=== PATIENT | male | born 1950 | race Caucasian/White ===

== ENCOUNTER → 2017-01-23 | Outpatient (CLI) | payer MEDICARE, BC ==
[2017-01-23 11:48] LABS: PROTHROMBIN TIME 14.3 SEC (11.4-15.4)
[2017-01-23 11:49] LABS: PARTIAL THROMBOPLASTIN TIME 29.1 SEC (23.5-35.8)
== END ==
LOC: OD 10:40
PROVIDERS: ATTEND Physician Assistant
DX: Z79.02 Long term (current) use of antithrombotics/antiplatelets (principal); Z79.01 Long term (current) use of anticoagulants
CPT/HCPCS: 36415; 85610; 85730

== ENCOUNTER → 2017-06-15 | Outpatient (CLI) | payer MEDICARE, BC | LOC: OD 13:01 | PROVIDERS: ATTEND Urology | DX: N40.1 Benign prostatic hyperplasia with lower urinary tract symptoms (principal); Z53.8 Procedure and treatment not carried out for other reasons ==

== ENCOUNTER → 2017-06-30 | Outpatient (CLI) | payer MEDICARE, BC ==
--- NOTE | 2017-06-30 21:19 | RADIOLOGY REPORT (SQ) ---
EXAM DESCRIPTION: MRI RT UPPER JOINT WITHOUT COMPLETED DATE/TIME: 06/30/2017 7:16 pm REASON FOR STUDY: PAIN IN RIGHT SHOULDER M25.511 PAIN IN RIGHT SHOULDER COMPARISON: None. TECHNIQUE: Right shoulder images acquired and stored on PACS. Multiplanar imaging to include fat sen sitive sequences such as T1, water sensitive sequences such as FST2/STIR, cartilage sensitive sequenc es such as FSPD/gradient-echo sequences. LIMITATIONS: None. FINDINGS: BONE MARROW AND CORTEX: No marrow signal abnormalities worrisome for occult fracture or ag gressive marrow replacement process. Subcentimeter subcortical cyst right humeral head medial to the bicipital groove axial image 9. subcentimeter subcortical cyst posterior right humeral head greater tuberosity. JOINT OR BURSAL EFFUSION: No significant joint or bursal fluid. No suggestion of loose bodies. GLENO-HUMERAL ARTICULATION: Normal articulation. No subluxation. No cystic change. No osteophytes or cartilage loss. ACROMION AND AC JOINT: Type 4 acromion with bulky acromioclavicular joint bony spurring and mild narr owing of the subacromial recess best shown on coronal image 7 and sagittal image 13. ROTATOR CUFF AND INTERVAL: There is a small tear along the superior edge of the distal subscapularis tendon best shown on sagittal image 11. Supraspinatus and infraspinatus undersurface tendinopathy wi thout full-thickness tear. No rotator interval tear. No rotator interval thickening to suggest adhesive capsulitis. LABRUM AND BICEPS LABRAL COMPLEX: Intra-articular long head biceps tendon normal in signal. There is a small superior labral tear at its attachment, extending into the posterosuperior labrum best art wn on axial images 7-11. No paralabral cyst. REMAINDER OF LABRUM AND IGHL : No gross tear or paralabral cyst formation. Labral evaluation is less than optimal without joint distention. No thickening of IGHL to suggest adhesive capsulitis. PERIARTICULAR AND ADJACENT SOFT TISSUES: No masses or abnormal nodes. OTHER: No other significant finding. IMPRESSION: Small full-thickness tear superior margin of the distal subscapularis tendon The long head biceps tendon insertion superior labral tear extending into the posterosuperior labrum Mild distal supra and infraspinatus tendinopathy. TECHNICAL DOCUMENTATION: JOB ID: [id number]- All Rights Reserved
== END ==
LOC: RAD 18:24
PROVIDERS: ATTEND Physician Assistant
DX: M25.511 Pain in right shoulder (principal)

== ENCOUNTER 2017-09-21 10:22 | Day surgery (SDC) | payer MEDICARE, BC ==
--- NOTE | 2017-09-18 09:58 | RADIOLOGY REPORT (SQ) ---
EXAM DESCRIPTION: CHEST PA/LATERAL COMPLETED DATE/TIME: 09/18/2017 9:28 am REASON FOR STUDY: PRE OP COMPARISON: None. EXAM PARAMETERS: NUMBER OF VIEWS: two views TECHNIQUE: Digital Frontal and Lateral radiographic views of the chest acquired. RADIATION DOSE: NA LIMITATIONS: none FINDINGS: LUNGS AND PLEURA: No opacities, masses or pneumothorax. No pleural effusion. MEDIASTINUM AND HILAR STRUCTURES: No masses or contour abnormalities. HEART AND VASCULAR STRUCTURES: Heart normal size. No evidence for failure. BONES: No acute findings. HARDWARE: None in the chest. OTHER: No other significant finding. IMPRESSION: NO SIGNIFICANT RADIOGRAPHIC FINDING IN THE CHEST. TECHNICAL DOCUMENTATION: JOB ID: [id number] [employer]- All Rights Reserved
[2017-09-18 10:04] LABS: ABSOLUTE BASOPHILS # (AUTO) 0.1 10^3/uL (0.0-0.2); ABSOLUTE EOSINOPHILS # (AUTO) 0.2 10^3/uL (0.0-0.6); ABSOLUTE LYMPHOCYTES (AUTO) 1.9 10^3/uL (0.5-4.7); ABSOLUTE MONOCYTES (AUTO) 0.5 10^3/uL (0.1-1.4); ABSOLUTE NEUT (AUTO) 5.4 10^3/uL (1.7-8.2); BASOPHILS % (AUTO) 0.8 % (0-2); EOSINOPHILS % (AUTO) 2.1 % (0-6); HEMOGLOBIN 15.2 g/dL (13.5-17.0); LYMPHOCYTES % (AUTO) 23.8 % (13-45); MEAN CORPUSCULAR HEMOGLOBIN 29.8 pg (27.0-33.4); MEAN CORPUSCULAR HGB CONC 33.8 g/dL (32.0-36.0); MEAN CORPUSCULAR VOLUME 88 fl (80-97); MONOCYTES % (AUTO) 6.5 % (3-13); PLATELET COUNT 214 10^3/uL (150-450); RED CELL DISTRIBUTION WIDTH 13.4 % (11.5-14.0); SEGMENTED NEUTROPHILS % (AUTO) 66.8 % (42-78); TOTAL CELLS COUNTED % (AUTO) 100 %
[2017-09-18 10:10] LABS: APPEARANCE,URINE SLIGHTLY-CLOUDY; BILIRUBIN,URINE NEGATIVE (NEGATIVE); COLOR,URINE AMBER; GLUCOSE, URINE NEGATIVE (NEGATIVE); KETONES,URINE NEGATIVE (NEGATIVE); LEUKOCYTE ESTERASE,URINE NEGATIVE (NEGATIVE); NITRITE,URINE NEGATIVE (NEGATIVE); PROTEIN,URINE NEGATIVE (NEGATIVE); URINE SPECIFIC GRAVITY 1.024
[2017-09-18 10:28] LABS: ANION GAP 13 (5-19); BLOOD UREA NITROGEN 13 mg/dL (7-20); CALCIUM 9.2 mg/dL (8.4-10.2); CARBON DIOXIDE 25 mmol/L (22-30); CHLORIDE 103 mmol/L (98-107); GLUCOSE 125 mg/dL (75-110); POTASSIUM 4.1 mmol/L (3.6-5.0); SODIUM 141.4 mmol/L (137-145)
--- NOTE | 2017-09-18 13:38 | EKG REPORT ---
SEVERITY:- ABNORMAL ECG - ATRIAL FIBRILLATION CONSIDER POSTERIOR INFARCT MINIMAL ST DEPRESSION, ANTEROLATERAL LEADS : Confirmed by: Tobi Moss MD 18-Sep-2017 13:38:14
[~2017-09-21 10:22] MED LIST: CEFAZOLIN 2 GM/D5W RTU 2 GM/50 ML RTUPB IV PRN; LACTATED RINGERS 1000 ML IV PRN; LIDOCAINE 0.5% INJ-PF (5 MG/ML) 50 ML SDV SUBCUT PRN
[2017-09-21 12:27] LABS: PROTHROMBIN TIME 13.9 SEC (11.4-15.4)
[2017-09-21 12:28] LABS: PARTIAL THROMBOPLASTIN TIME 28.7 SEC (23.5-35.8)
[2017-09-21] MEDS ORDERED: PROPOFOL INJ 200 MG/20 ML VIAL IV ONE (12:58)
[2017-09-21] MEDS ORDERED: ACETAMINOPHEN 100 ML IV ONE (12:58)
[2017-09-21] MEDS ORDERED: ONDANSETRON HCL INJ/PF 4 MG/2 ML SDV ONE (12:58)
[2017-09-21] MEDS ORDERED: MIDAZOLAM 2 MG/2 ML INJ ONE (12:58)
[2017-09-21] MEDS ORDERED: FENTANYL CITRATE INJ/PF 250 MCG/5 ML AMPULE ONE (12:58)
[2017-09-21] MEDS ORDERED: LIDOCAINE 2% INJ-PF (20 MG/ML) 10 ML AMPUL ONE (12:58)
[2017-09-21] MEDS ORDERED: BUPIVACAINE HCL 0.25 % INJ/PF (2.5 MG/1 ML) 30 ML VIAL ONE (13:04)
[2017-09-21] MEDS ORDERED: EPINEPHRINE INJ/PF 1 MG/1 ML AMPULE ONE ×2 (13:04→14:34)
[2017-09-21] MEDS ORDERED: FENTANYL CITRATE INJ/PF 100 MCG/2 ML AMPUL IV PRN ×3 (14:04)
[2017-09-21] MEDS ORDERED: MEPERIDINE HCL/PF INJ 25 MG/1 ML DISP.SYRIN IV PRN (14:04)
[2017-09-21] MEDS ORDERED: PROMETHAZINE HCL INJ 25 MG/1 ML VIAL IV PRN ×2 (14:04)
[2017-09-21] MEDS ORDERED: DIPHENHYDRAMINE HCL 50 MG/ML VIAL IV PRN (14:04)
[2017-09-21] MEDS ORDERED: MORPHINE SULFATE 10 MG/ML INJ IV PRN (14:04)
[2017-09-21] MEDS ORDERED: ONDANSETRON HCL INJ/PF 4 MG/2 ML SDV IV PRN (14:04)
[2017-09-21] MEDS ORDERED: SUCCINYLCHOLINE CHLORIDE INJ 200 MG/10 ML VIAL ONE (14:06)
[2017-09-21] MEDS: FENTANYL CITRATE INJ/PF 100 MCG/2 ML AMPUL ONE ×2 (15:57→16:09)
[2017-09-21] MEDS ORDERED: OXYCODONE-ACETAMINOPHEN 5-325 MG TABLET PO PRN ×2 (16:45)
--- NOTE | 2017-09-21 16:46 | Discharge Summary ---
Discharge Summary (SDC) - Discharge Final Diagnosis: Right shoulder and ambulation with arthroscopic rotator cuff repair and biceps tenodesis Date of Surgery: 09/21/17 Discharge Date: 09/21/17 Condition: Good Treatment or Instructions: Patient is instructed to follow up in 10-14 days. Patient instructed to remove dressing in 4 days then can shower and apply Band- Aids as needed. Patient to wear sling for comfort but okay to remove for shower and pendulum exercises. Pendulum exercises are instructed to be done 3 times a day ideally with breakfast, lunch, dinners and showers. Patient instructed to call if there is any signs of redness or drainage fevers or chills. Prescriptions: Oxycodone HCl/Acetaminophen [Percocet 5-325 mg Tablet] 1 - 2 tab PO ASDIR PRN # 60 tablet PRN Reason: Referrals: DUC TAYLOR PA [Primary Care Provider] - Discharge Diet: As Tolerated Respiratory Treatments at Home: Deep Breathing/Coughing Discharge Activity: No Driving, No Lifting/Push/Pulling, Walk Frequently Home Care Assistance: None Needed Report the Following to Your Physician Immediately: Shortness of Breath, Increase in Pain, Fever over 101 Degrees, Unusual Bleeding, Redness, Swelling, Warmth, Increased Soreness, Drainage-Yellow, Drainage-[place], Drainage-Green, Drainage-Foul Smelling
[2017-09-21] MEDS ORDERED: OXYCODONE-ACETAMINOPHEN 5-325 MG TABLET ONE (16:49)
[2017-09-21 18:12] VITALS: BP 127/78
--- NOTE | 2017-09-28 16:33 | Operative Report ---
Operative Report DATE OF SURGERY: 09/21/17 PREOPERATIVE DIAGNOSIS: Right shoulder small full-thickness rotator cuff tear with biceps tendinopathy and adhesive capsulitis POSTOPERATIVE DIAGNOSIS: Same OPERATION: Right shoulder manipulation under anesthesia. Rotator cuff repair. Subpectoralis biceps tenodesis SURGEON: MARIA DEL ROSARIO LU ANESTHESIA: GA TISSUE REMOVED OR ALTERED: Long head of the biceps COMPLICATIONS: None ESTIMATED BLOOD LOSS: Less than 20 mL INTRAOPERATIVE FINDINGS: As above PROCEDURE: IMPLANTS: 4.75 mm swivel lock 2 DESCRIPTION OF PROCEDURE: Patient was brought to the operating room placed in supine position. After successfully induced and intubated the patient patient was placed in the beachchair position the head and endotracheal tube was secured appropriately. The right shoulder was prepped and draped in a normal surgical fashion. A timeout was done identifying the right shoulder as the correct site. I proceeded to do a manipulation and felt that release and was able to regain full for flexion and abduction with external rotation as well. After inflating the glenohumeral joint with sterile saline solution an 11 blade was used to establish the posterior portal. The arthroscope was introduced and return of fluid was seen showing that we successfully penetrated the glenohumeral joint. With the use of spinal needle we're able to lissette the anterior portal and using an 11 blade able to establish anterior portal. A cannula was introduced through the anterior portal. At this point diagnostic scope was done. Patient had adhesive capsulitis therefore he saw significant synovitis and redness at the attachment of the biceps and the capsule anteriorly. There is some fraying of the superior labrum and I was able to place my probe in between the labrum and the glenoid. Confirm that the patient had a degenerative SLAP tear. I used arthroscopic scissors then to do my tenotomy and then with the shaver and the radiofrequency ablator was able to debride and trim the superior labrum. A lateral portal was established 11 blade. 4.0mm shaver was introduced and was used to prepare the tear and the frontal bone for preparation of anchor placement. Once I was satisfied with the preparation I then redirected my scope into the subacromial space. Patient had very little bursitis but did have significant irritation and inflammation of the rotator cuff A percutaneous incision was then just adjacent to the acromion on the lateral aspect. Through this percutaneous hole the awl was used to prepare the hole for an anchor. [place] was percutaneously sent flushed with the bone just adjacent to the articular margin. Sutures were passed through the anterior portal for proper suture management. With the use of the scorpion and I proceeded to pass the sutures through the rotator cuff tendon with proper suture management was able to pass the strands either through percutaneous hole or the anterior portal. Once I was satisfied with placement of all my sutures I then proceeded to do my arthroscopic knots. At this point the strands were used to do our lateral row. Bicomposite show out was used and the lateral aspect of the humerus was then cleaned off with a shaver and electrocautery. Once identified once I was replacement I proceeded to use my awl to do my hole. This this point the sutures were adequately tensioned and subluxed for inserted and secured , securing and increasing the footprint of the rotator cuff repair. Remaining strands were cut with the arthroscopic cutter. I proceeded then to remove fluid from the shoulder joint and removed the instruments. A 1 inch incision was done just medial to the axillary fold dissection was done with Metzenbaum scissors and hemostasis was obtained with the Bovie. Able to then cut the fascia overlying the biceps and then hooked the long head of biceps with a 90 clamp. Was able then to use a fiber loop and suture 2 cm from the muscular tendinous junction and cut the remaining tendon. I used 2 Homans to reflect tissue on the side of the humerus. I used a 4 mm spade tip guidepin then to do my proximal cortex drilling into the intramedullary canal of the humerus. I fed the 2 ends of the fiber wire into the biceps tenodesis button as recommended by the manufacturing company. Pulled out the guidepin and then proceeded to insert the button into the intramedullary canal. I was able to successfully flipped the button and after releasing securing the biceps. I used a free needle the comes in the care and pass one of the FiberWire ends through the biceps one more time to further secure it. Once I since the biceps onto the humeral cortex I then proceeded to go several half hitch knots for added fixation. Instruments were removed and used bulb irrigation to wash the tissue. I proceeded to approximate the tissue with 2-0 Vicryl and close the skin with 3-0 nylon. The 2 of the portal sites were closed with 3-0 nylon as well. The biceps tenodesis incision was closed in a subcuticular fashion. I placed Xeroform over the incisions and covered it with 4 x 4 dressing and ABD pads. Secured the dressing with Medipore tape. Patient's arm was placed in the sling and the patient then was placed in supine position extubated and sent to PACU in stable condition. Final pictures were taking showing my repair. At this point fluid from the shoulder was removed camera and instruments were all removed. I proceeded to close my portal sites with 3-0 nylon. Xeroform 4 x 4 dressing followed by ABDs pads and Medipore tape was applied. Patient was placed in a sling and returned to supine position where he was successfully extubated and taken to PACU in stable condition.
== END 2017-09-21 18:05 | disposition home or self-care (01) ==
LOC: OROUT 10:22
PROVIDERS: ATTEND Orthopaedic Surgery
PROC: 0LM14ZZ Reattachment of Right Shoulder Tendon, Percutaneous Endoscopic Approach (ICD-10-PCS; 2017-09-21)
PROC: 0RNJ4ZZ Release Right Shoulder Joint, Percutaneous Endoscopic Approach (ICD-10-PCS; 2017-09-21)
PROC: 0LS30ZZ Reposition Right Upper Arm Tendon, Open Approach (ICD-10-PCS; principal; 2017-09-21 13:15)
DX: M75.121 Complete rotator cuff tear or rupture of right shoulder, not specified as traumatic (principal); M75.01 Adhesive capsulitis of right shoulder; E78.5 Hyperlipidemia, unspecified; I10 Essential (primary) hypertension; I48.91 Unspecified atrial fibrillation; Z79.01 Long term (current) use of anticoagulants; Z79.899 Other long term (current) drug therapy
CPT/HCPCS: 29827; 29826; 23430; 93005; 36415 ×2; 84132; 85025; 85610; 85730; 80048; 81001; 71046; 93010; C1713 ×2; J2250; J0171; J3010 ×2; A9270; J0330; J2405; J2704; J3490; J0690; J0131; 1630

== ENCOUNTER → 2017-10-19 | Outpatient (CLI) | payer MEDICARE, BC | LOC: OD 10:34 | PROVIDERS: ATTEND Physician Assistant | DX: Z79.891 Long term (current) use of opiate analgesic (principal); Z79.899 Other long term (current) drug therapy | CPT/HCPCS: 36415; G0480; 80358 ==

== ENCOUNTER → 2018-09-13 | Outpatient (CLI) | payer MEDICARE, BC ==
--- NOTE | 2018-09-13 10:47 | RADIOLOGY REPORT (SQ) ---
EXAM DESCRIPTION: CHEST PA/LATERAL COMPLETED DATE/TIME: 09/13/2018 10:33 am REASON FOR STUDY: COUGH COMPARISON: Two-view chest 09/18/2017 EXAM PARAMETERS: NUMBER OF VIEWS: two views TECHNIQUE: Digital Frontal and Lateral radiographic views of the chest acquired. RADIATION DOSE: NA LIMITATIONS: none FINDINGS: LUNGS AND PLEURA: No opacities, masses or pneumothorax. No pleural effusion. MEDIASTINUM AND HILAR STRUCTURES: No masses or contour abnormalities. HEART AND VASCULAR STRUCTURES: Heart normal size. No evidence for failure. BONES: No acute findings. HARDWARE: None in the chest. OTHER: No other significant finding. IMPRESSION: NO SIGNIFICANT RADIOGRAPHIC FINDING IN THE CHEST. TECHNICAL DOCUMENTATION: JOB ID: [id number] [employer]- All Rights Reserved Reading location - IP/workstation name: [email or web address]
== END ==
LOC: OD 10:13
PROVIDERS: ATTEND Physician Assistant
DX: R05 Cough (principal)
CPT/HCPCS: 71046

== ENCOUNTER 2019-02-27 05:37 | Day surgery (SDC) | payer MEDICARE, BC ==
--- NOTE | 2019-02-22 09:53 | RADIOLOGY REPORT (SQ) ---
EXAM DESCRIPTION: CHEST PA/LATERAL COMPLETED DATE/TIME: 02/22/2019 9:41 am REASON FOR STUDY: PRE-OP COMPARISON: 09/13/2018 EXAM PARAMETERS: NUMBER OF VIEWS: two views TECHNIQUE: Digital Frontal and Lateral radiographic views of the chest acquired. RADIATION DOSE: NA LIMITATIONS: none FINDINGS: LUNGS AND PLEURA: No opacities, masses or pneumothorax. No pleural effusion. MEDIASTINUM AND HILAR STRUCTURES: No masses or contour abnormalities. HEART AND VASCULAR STRUCTURES: Heart normal size. No evidence for failure. BONES: No acute findings. HARDWARE: None in the chest. OTHER: No other significant finding. IMPRESSION: NO SIGNIFICANT RADIOGRAPHIC FINDING IN THE CHEST. TECHNICAL DOCUMENTATION: JOB ID: [id number] [employer]- All Rights Reserved Reading location - IP/workstation name: [email or web address]
[2019-02-22 10:00] LABS: HEMATOCRIT 45.8 % (37.9-51.0); HEMOGLOBIN 15.5 g/dL (13.5-17.0); MEAN CORPUSCULAR HEMOGLOBIN 30.6 pg (27.0-33.4); MEAN CORPUSCULAR HGB CONC 33.8 g/dL (32.0-36.0); MEAN CORPUSCULAR VOLUME 91 fl (80-97); PLATELET COUNT 186 10^3/uL (150-450); RED BLOOD COUNT 5.05 10^6/uL (4.35-5.55); RED CELL DISTRIBUTION WIDTH 13.9 % (11.5-14.0); WHITE BLOOD COUNT 8.3 10^3/uL (4.0-10.5)
--- NOTE | 2019-02-22 10:12 | EKG REPORT ---
SEVERITY:- ABNORMAL ECG - ATRIAL FIBRILLATION, V-RATE 55-94 NONSPECIFIC T ABNORMALITIES, LATERAL LEADS : Confirmed by: Hung Long 22-Feb-2019 10:11:34
[2019-02-22 10:21] LABS: ANION GAP 7 (5-19); BLOOD UREA NITROGEN 10 mg/dL (7-20); CALCIUM 9.6 mg/dL (8.4-10.2); CARBON DIOXIDE 33 mmol/L (22-30); CHLORIDE 101 mmol/L (98-107); GLUCOSE 97 mg/dL (75-110); POTASSIUM 4.7 mmol/L (3.6-5.0)
[~2019-02-27 05:37] MED LIST changes: -CEFAZOLIN 2 GM/D5W RTU 2 GM/50 ML RTUPB IV PRN; +CEFAZOLIN SODIUM 2 GM in DEXTROSE 5%-WATER 100 ML IV PRN; -LACTATED RINGERS 1000 ML IV PRN; -LIDOCAINE 0.5% INJ-PF (5 MG/ML) 50 ML SDV SUBCUT PRN
[2019-02-27 06:01] LABS: APPEARANCE,URINE SLIGHTLY-CLOUDY; BILIRUBIN,URINE NEGATIVE (NEGATIVE); COLOR,URINE YELLOW; GLUCOSE, URINE NEGATIVE (NEGATIVE); KETONES,URINE NEGATIVE (NEGATIVE); LEUKOCYTE ESTERASE,URINE NEGATIVE (NEGATIVE); NITRITE,URINE NEGATIVE (NEGATIVE); PROTEIN,URINE NEGATIVE (NEGATIVE); URINE SPECIFIC GRAVITY 1.019
[2019-02-27 06:44] LABS: INTERNATIONAL RATION (INR) 1.11; PROTHROMBIN TIME 14.3 SEC (11.4-15.4)
[2019-02-27 06:45] LABS: PARTIAL THROMBOPLASTIN TIME 29.1 SEC (23.5-35.8)
[2019-02-27] MEDS ORDERED: DEXMEDETOMIDINE INJ 80 MCG/20 ML VIAL IV ONE (07:02)
[2019-02-27] MEDS ORDERED: FENTANYL CITRATE INJ/PF 100 MCG/2 ML AMPUL ONE (07:02)
[2019-02-27] MEDS ORDERED: MIDAZOLAM 2 MG/2 ML INJ ONE (07:02)
[2019-02-27] MEDS ORDERED: PROPOFOL INJ 200 MG/20 ML VIAL IV ONE ×2 (07:03→07:04)
[2019-02-27] MEDS ORDERED: KETAMINE HCL INJ 500 MG/10 ML VIAL ONE (07:03)
[2019-02-27] MEDS ORDERED: ALBUTEROL SULFATE 0.083% NEB 2.5 MG/3 ML AMPUL NEB ONE ×2 (07:04→07:08)
[2019-02-27] MEDS ORDERED: BUPIVACAINE HCL 0.5 % INJ/PF 30 ML SDV ONE (07:05)
[2019-02-27] MEDS ORDERED: LIDOCAINE 1%/EPINEPHRINE INJ 20 ML VIAL ONE (07:06)
[2019-02-27] MEDS ORDERED: MEPERIDINE HCL/PF INJ 25 MG/1 ML DISP.SYRIN IV PRN (07:48)
[2019-02-27] MEDS ORDERED: DIPHENHYDRAMINE HCL 50 MG/ML VIAL IV PRN (07:48)
[2019-02-27] MEDS ORDERED: PROMETHAZINE HCL INJ 25 MG/1 ML VIAL IV PRN ×2 (07:48)
[2019-02-27] MEDS ORDERED: FENTANYL CITRATE INJ/PF 100 MCG/2 ML AMPUL IV PRN ×3 (07:48)
--- NOTE | 2019-02-27 07:53 | Discharge Summary ---
Discharge Summary (SDC) - Discharge Final Diagnosis: Left medial meniscal tear Date of Surgery: 02/27/19 Discharge Date: 02/27/19 Condition: Good Treatment or Instructions: Weightbearing as tolerated ambulation. Remove compressive wrap on Monday. Underlying OpSite dressing can be left in place until you return to the office in 2 weeks. You can shower with the OpSite dressing in place. Prescriptions: Oxycodone HCl/Acetaminophen [Percocet 5-325 mg Tablet] 1 tab PO Q6 PRN #25 tab PRN Reason: Referrals: KAMRAN TAPIA MD [Primary Care Provider] - Discharge Diet: As Tolerated, Regular Respiratory Treatments at Home: Deep Breathing/Coughing Discharge Activity: Balance Activity w/Rest, No tub bath Home Care Assistance: None Needed Report the Following to Your Physician Immediately: Shortness of Breath, Fever over 101 Degrees, Drainage-Foul Smelling
--- NOTE | 2019-02-27 07:55 | Operative Report ---
Operative Report DATE OF SURGERY: 02/27/19 PREOPERATIVE DIAGNOSIS: Left medial meniscal tear POSTOPERATIVE DIAGNOSIS: Bucket-handle tear left posterior horn medial meniscus. Grade 2 chondral malacia medial compartment. Grade 1 chondral malacia patellofemoral compartment. Intact ACL. 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 Intact lateral meniscus OPERATION: Arthroscopic partial left medial meniscectomy SURGEON: JUSTINE CONDE ANESTHESIA: LMAC ESTIMATED BLOOD LOSS: Minimal PROCEDURE: With the patient supine on the operating table the left lower extremities prepped and draped in sterile fashion. The knee is insufflated with accommodation Marcaine, Xylocaine, and epinephrine. Subsequent medial lateral patella portals are created for the introduction of arthroscope and debridements mentation. The joint is examined in systematic fashion findings as above. Using combination of a grabber, mechanical shaver, and electric frequency ablation probe a partial medial meniscectomy was performed from approximately 8:00 to 12:00 on the face of the dial. The joint is again examined in systematic fashion with no new findings. Instrumentation was removed. Portals reapproximated interrupted nylon. A sterile compressive dressing was applied and the patient's return to the PACU in satisfactory condition.
[2019-02-27] MEDS ORDERED: OXYCODONE-ACETAMINOPHEN 5-325 MG TABLET PO PRN (08:28)
[2019-02-27 09:48] VITALS: BP 106/66
== END 2019-02-27 09:40 | disposition home or self-care (01) ==
LOC: OROUT 05:37
PROVIDERS: ATTEND Orthopaedic Surgery
DX: M22.42 Chondromalacia patellae, left knee (principal); M23.222 Derangement of posterior horn of medial meniscus due to old tear or injury, left knee; E78.5 Hyperlipidemia, unspecified; I10 Essential (primary) hypertension; F17.210 Nicotine dependence, cigarettes, uncomplicated; I48.91 Unspecified atrial fibrillation; K21.9 Gastro-esophageal reflux disease without esophagitis; Z79.899 Other long term (current) drug therapy; Z79.01 Long term (current) use of anticoagulants; E66.3 Overweight; Z68.34 Body mass index [BMI] 34.0-34.9, adult; J44.9 Chronic obstructive pulmonary disease, unspecified
CPT/HCPCS: 93005; 36415 ×2; 84132; 85027; 85610; 85730; 80048; 81001; 71046; 93010; 01400; 29881; J2250; J3490 ×4; J0690; J3010; J7060; J2704; A9270; 1400

== ENCOUNTER → 2019-07-01 | Outpatient (CLI) | payer MEDICARE, BC | LOC: OD 08:31 | PROVIDERS: ATTEND Physician Assistant | DX: Z51.81 Encounter for therapeutic drug level monitoring (principal); Z79.891 Long term (current) use of opiate analgesic | CPT/HCPCS: 36415; G0480; 80358 ==

== ENCOUNTER → 2019-10-03 | Outpatient (CLI) | payer MEDICARE, BC ==
--- NOTE | 2019-10-03 12:16 | RADIOLOGY REPORT (SQ) ---
EXAM DESCRIPTION: CHEST PA/LATERAL COMPLETED DATE/TIME: 10/03/2019 10:26 am REASON FOR STUDY: PRE-OP COMPARISON: Chest films 02/22/2019, 09/13/2018 EXAM PARAMETERS: NUMBER OF VIEWS: two views TECHNIQUE: Digital Frontal and Lateral radiographic views of the chest acquired. RADIATION DOSE: NA LIMITATIONS: none FINDINGS: LUNGS AND PLEURA: 2 cm nodule versus infiltrate just above the left hemidiaphragm, new com pared to 02/22/2019 and 09/13/2018. Remainder of the lungs are well inflated and grossly clear. No pleural effusion or pneumothorax. MEDIASTINUM AND HILAR STRUCTURES: No masses or contour abnormalities. HEART AND VASCULAR STRUCTURES: Heart normal size. No evidence for failure. BONES: No acute findings. HARDWARE: None in the chest. OTHER: No other significant finding. IMPRESSION: 2 cm nodule versus infiltrate just above the left hemidiaphragm TECHNICAL DOCUMENTATION: JOB ID: [id number] 2010 [employer]- All Rights Reserved Reading location - IP/workstation name: [email or web address]
== END ==
LOC: RAD 10:15
PROVIDERS: ATTEND Orthopaedic Surgery
DX: Z01.810 Encounter for preprocedural cardiovascular examination (principal); Z01.811 Encounter for preprocedural respiratory examination; Z01.812 Encounter for preprocedural laboratory examination; M17.12 Unilateral primary osteoarthritis, left knee
CPT/HCPCS: 71046

== ENCOUNTER → 2019-10-10 | Outpatient (CLI) | payer MEDICARE, BC | LOC: OD 11:15 → EDSTATUS 10-23 07:30 | PROVIDERS: ATTEND Orthopaedic Surgery | DX: Z53.9 Procedure and treatment not carried out, unspecified reason (principal) ==

== ENCOUNTER → 2019-10-29 | Outpatient (CLI) | payer MEDICARE, BC ==
--- NOTE | 2019-10-29 10:20 | RADIOLOGY REPORT (SQ) ---
EXAM DESCRIPTION: CT CHEST WITH IMAGES COMPLETED DATE/TIME: 10/29/2019 10:07 am REASON FOR STUDY: ABNORMAL CXR (R93.89) R93.89 ABNORMAL FINDINGS ON DX IMAGING OF OTH BODY STRUCTUR E COMPARISON: Chest x-ray dated 10/03/2019 TECHNIQUE: CT scan of the chest performed using helical scanning technique with dynamic intravenous contrast injection. Images reviewed with lung, soft tissue and bone windows. Reconstructed coronal and sagittal MPR and MIP images reviewed. All images stored on PACS. All CT scanners at this facility use dose modulation, iterative reconstruction, and/or weight based d osing when appropriate to reduce radiation dose to as low as reasonably achievable (ALARA). [facility]: Dose Right [facility]: CareDose [facility]: Dose Right [facility]: Teradose 4D [facility]: [employer] CONTRAST TYPE AND DOSE: contrast/concentration: Isovue 350.00 mg/ml; Total Contrast Delivered: 80.0 ml; Total Saline Delivered: 55.0 ml RENAL FUNCTION: Creatinine 0.8 RADIATION DOSE: CT Rad equipment meets quality standard of care and radiation dose reduction techniq ues were employed. CTDIvol: 16.7 mGy. DLP: 743 mGy-cm. . LIMITATIONS: None. FINDINGS: LUNGS AND PLEURA: There is linear atelectasis in the lingula. There is atelectasis in the left base. These account for the conventional radiographic findings. This possibly represents scar . No suspicious pulmonary nodules. Resolving pneumonia is also a possibility. HILAR AND MEDIASTINAL STRUCTURES: Small mediastinal nodes most likely reactive. HEART AND VASCULAR STRUCTURES: No aneurysm or dissection. No central pulmonary emboli. No pericardi al effusion. HARDWARE: None in the chest. UPPER ABDOMEN: Simple right renal cyst. Focal area of enhancement in the dome of the liver possibly small hemangioma. THYROID AND OTHER SOFT TISSUES: No masses. No adenopathy. BONES: No significant finding. OTHER: No other significant finding. IMPRESSION: Scarring or atelectasis in the lingula and left base accounting for conventional radiogr aphic findings. Possibly resolving pneumonia. TECHNICAL DOCUMENTATION: JOB ID: [id number] Quality ID # [id number]: Final reports with documentation of one or more dose reduction techniques (e.g., Au tomated exposure control, adjustment of the mA and/or kV according to patient size, use of iterative reconstruction technique) 2010 [employer]- All Rights Reserved Reading location - IP/workstation name: [email or web address]
== END ==
LOC: RAD 09:16
PROVIDERS: ATTEND Physician Assistant
DX: R93.89 Abnormal findings on diagnostic imaging of other specified body structures (principal)
CPT/HCPCS: 71260; 82565

== ENCOUNTER → 2019-12-10 | Outpatient (CLI) | payer MEDICARE, BC ==
[2019-12-10 09:35] LABS: ABSOLUTE EOSINOPHILS # (AUTO) 0.1 10^3/uL (0.0-0.6); ABSOLUTE LYMPHOCYTES (AUTO) 1.7 10^3/uL (0.5-4.7); ABSOLUTE MONOCYTES (AUTO) 0.5 10^3/uL (0.1-1.4); ABSOLUTE NEUT (AUTO) 3.9 10^3/uL (1.7-8.2); BASOPHILS % (AUTO) 0.7 % (0-2); HEMATOCRIT 45.9 % (37.9-51.0); HEMOGLOBIN 15.8 g/dL (13.5-17.0); LYMPHOCYTES % (AUTO) 26.7 % (13-45); MEAN CORPUSCULAR HGB CONC 34.5 g/dL (32.0-36.0); MEAN CORPUSCULAR VOLUME 90 fl (80-97); MONOCYTES % (AUTO) 8.7 % (3-13); PLATELET COUNT 194 10^3/uL (150-450); RED BLOOD COUNT 5.11 10^6/uL (4.35-5.55); RED CELL DISTRIBUTION WIDTH 13.7 % (11.5-14.0); SEGMENTED NEUTROPHILS % (AUTO) 61.9 % (42-78); TOTAL CELLS COUNTED % (AUTO) 100 %; WHITE BLOOD COUNT 6.3 10^3/uL (4.0-10.5)
[2019-12-10 09:50] LABS: ANION GAP 8 (5-19); BLOOD UREA NITROGEN 10 mg/dL (7-20); CALCIUM 9.2 mg/dL (8.4-10.2); CARBON DIOXIDE 28 mmol/L (22-30); CHLORIDE 102 mmol/L (98-107); GLUCOSE 145 mg/dL (75-110); POTASSIUM 4.3 mmol/L (3.6-5.0)
--- NOTE | 2019-12-10 09:50 | RADIOLOGY REPORT (SQ) ---
EXAM DESCRIPTION: CHEST PA/LATERAL IMAGES COMPLETED DATE/TIME: 12/10/2019 9:37 am REASON FOR STUDY: PRE-OP COMPARISON: 10/03/2019 EXAM PARAMETERS: NUMBER OF VIEWS: two views TECHNIQUE: Digital Frontal and Lateral radiographic views of the chest acquired. RADIATION DOSE: NA LIMITATIONS: none FINDINGS: LUNGS AND PLEURA: Minimal linear opacity remains in the left lung base most likely atelect asis or scarring. Lung junior are otherwise clear. MEDIASTINUM AND HILAR STRUCTURES: No masses or contour abnormalities. HEART AND VASCULAR STRUCTURES: Heart normal size. No evidence for failure. BONES: No acute findings. HARDWARE: None in the chest. OTHER: No other significant finding. IMPRESSION: Left basilar opacity is grossly stable most likely representing scar or residual atelect asis. TECHNICAL DOCUMENTATION: JOB ID: [id number] 2010 [employer]- All Rights Reserved Reading location - IP/workstation name: [email or web address]
[2019-12-10 10:29] LABS: COLOR,URINE STRAW
[2019-12-10 10:30] LABS: APPEARANCE,URINE CLEAR; BILIRUBIN,URINE NEGATIVE (NEGATIVE); GLUCOSE, URINE NEGATIVE (NEGATIVE); KETONES,URINE NEGATIVE (NEGATIVE); LEUKOCYTE ESTERASE,URINE NEGATIVE (NEGATIVE); NITRITE,URINE NEGATIVE (NEGATIVE); PROTEIN,URINE NEGATIVE (NEGATIVE); URINE SPECIFIC GRAVITY 1.005; UROBILINOGEN,URINE NEGATIVE mg/dL (<2.0)
[2019-12-10 10:31] LABS: ADD MANUAL MICROSCOPIC YES; RBC,URINE NONE SEEN /HPF; WBC,URINE NONE SEEN /HPF
--- NOTE | 2019-12-11 08:40 | EKG REPORT ---
SEVERITY:- ABNORMAL ECG - ATRIAL FIBRILLATION, V-RATE 53-83 : Confirmed by: Hung Long 11-Dec-2019 08:39:57
== END ==
LOC: OD 08:56
PROVIDERS: ATTEND Orthopaedic Surgery
DX: Z01.812 Encounter for preprocedural laboratory examination (principal); Z01.810 Encounter for preprocedural cardiovascular examination; Z01.811 Encounter for preprocedural respiratory examination; M17.12 Unilateral primary osteoarthritis, left knee
CPT/HCPCS: 36415; 71046; 80048; 81001; 85025; 93005; 93010

== ENCOUNTER 2020-01-06 05:31 | Inpatient (IN) | payer MEDICARE, BC ==
[~2020-01-06 05:31] MED LIST changes: +BUPIVACAINE INJ/PF LIPOSOME/PF 266 MG/20 ML SDV INJ PRN; +CEFAZOLIN INJ 1 GM VIAL IV PRN; -CEFAZOLIN SODIUM 2 GM in DEXTROSE 5%-WATER 100 ML IV PRN; +IBUPROFEN 800 MG in NORMAL SALINE 250 ML IV PRN; +LACTATED RINGERS 1000 ML IV PRN; +LIDOCAINE 0.5% INJ-PF (5 MG/ML) 50 ML SDV SUBCUT PRN; +OXYCODONE HCL SR 10 MG TABLET PO PRN; +PANTOPRAZOLE SODIUM 20 MG TABLET.DR PO PRN; +VANCOMYCIN HCL 1,000 MG in DEXTROSE 5%-WATER 250 ML IV PRN
[2020-01-06] MEDS ORDERED: PANTOPRAZOLE SODIUM 20 MG TABLET.DR PO ONE (06:33)
[2020-01-06] MEDS ORDERED: OXYCODONE HCL SR 10 MG TABLET PO ONE (06:33)
[2020-01-06] MEDS ORDERED: CEFAZOLIN INJ 1 GM VIAL ONE (06:33)
[2020-01-06] MEDS ORDERED: ONDANSETRON HCL INJ/PF 4 MG/2 ML SDV ONE (06:49)
[2020-01-06] MEDS ORDERED: LIDOCAINE 2% INJ-PF (20 MG/ML) 10 ML AMPUL ONE (06:49)
[2020-01-06] MEDS ORDERED: PROPOFOL INJ 200 MG/20 ML VIAL IV ONE (06:49)
[2020-01-06] MEDS ORDERED: TRANEXAMIC ACID INJ/PF 1,000 MG/10 ML SDV ONE (06:49)
[2020-01-06] MEDS ORDERED: MIDAZOLAM 2 MG/2 ML INJ ONE ×2 (06:49→07:19)
[2020-01-06 06:53] LABS: INTERNATIONAL RATION (INR) 1.08
[2020-01-06 06:54] LABS: PARTIAL THROMBOPLASTIN TIME 29.6 SEC (23.5-35.8)
[2020-01-06] MEDS ORDERED: THROMBIN (BOVINE) TOPICAL 20000 UNIT VIAL ONE (07:12)
[2020-01-06] MEDS ORDERED: BUPIVACAINE HCL 0.25% /EPINEPHRINE INJ/PF 30 ML SDV ONE (07:12)
[2020-01-06] MEDS ORDERED: THROMBIN (BOVINE) TOPICAL 5000 UNIT VIAL ONE (07:13)
[2020-01-06] MEDS ORDERED: FENTANYL CITRATE INJ/PF 100 MCG/2 ML AMPUL ONE ×2 (07:15→07:19)
[2020-01-06] MEDS ORDERED: KETAMINE HCL INJ 500 MG/10 ML VIAL ONE (07:15)
[2020-01-06] MEDS ORDERED: ROPIVACAINE HCL 0.5% INJ/PF (5 MG/1 ML) 30 ML SDV ONE ×2 (07:20→08:06)
[2020-01-06] MEDS ORDERED: MEPERIDINE HCL/PF INJ 25 MG/1 ML DISP.SYRIN IV PRN (07:50)
[2020-01-06] MEDS ORDERED: DIPHENHYDRAMINE HCL 50 MG/ML VIAL IV PRN (07:50)
[2020-01-06] MEDS ORDERED: PROMETHAZINE HCL INJ 25 MG/1 ML VIAL IV PRN (07:50)
[2020-01-06] MEDS ORDERED: FENTANYL CITRATE INJ/PF 100 MCG/2 ML AMPUL IV PRN ×3 (07:50)
[2020-01-06] MEDS ORDERED: EPHEDRINE SULFATE INJ 50 MG/1 ML AMPULE ONE (08:37)
--- NOTE | 2020-01-06 08:40 | Operative Report ---
Operative Report DATE OF SURGERY: 01/06/20 PREOPERATIVE DIAGNOSIS: Left knee arthritis OPERATION: Left knee arthroplasty SURGEON: JUSTINE CONDE ANESTHESIA: Spinal TISSUE REMOVED OR ALTERED: Bone to pathology ESTIMATED BLOOD LOSS: 75 PROCEDURE: Implants used: Femur: sRyker triathlon size 7 CR femur Tibia: 7 tibia Tibial liner: 9 mm CS insert Patella: 40 mm oval patella Procedure with the patient supine on the operating table the left the limb is prepped and draped in a sterile fashion. The limb was elevated for exsanguination and the tourniquet inflated to 280 torr. A standard midline median parapatellar approach the knee is taken. Access is gained to the femoral canal through the intercondylar notch. Intramedullary alignment instrumentation used to resect 10 mm of distal femur in 5 of valgus. Sizing guide indicated a size 7 femur. Appropriate cutting jig is then used to fashion anterior posterior and chamfer cuts. A trial reduction femurs performed and this is judged to be adequate. Attention was next turned to the tibia. Using an extra medullary alignment system 9 millimeters was resected off the lateral tibial plateau. This is sized to a size 7 tibia. A trial reduction was now performed with a 7 femur and a 7 tibia using a 9 millimeters spacer. It is full extension and central patellofemoral tracking. The articular surface the patella was next resected using an oscillating saw. All trial implants were removed. Polymethylmethacrylate is mixed and used to cement the above implants in place. On adequate curing the cement excess cement was removed the tourniquet was deflated hemostasis obtained the wound is then closed in layers using interrupted Vicryl followed by nadine. A sterile compressive dressing was applied and the patient returned to recovery room in satisfactory condition.
[2020-01-06] MEDS ORDERED: ONDANSETRON HCL INJ/PF 4 MG/2 ML SDV IV PRN (08:41)
[2020-01-06] MEDS ORDERED: MAG HYDROX/AL HYDROX/SIMETH SUSP 30 ML UDCUP PO PRN ×2 (08:41→10:00)
[2020-01-06] MEDS ORDERED: ONDANSETRON 4 MG TAB.RAPDIS PO PRN (08:41)
[2020-01-06] MEDS ORDERED: ACETAMINOPHEN 325 MG TABLET PO PRN (08:41)
[2020-01-06] MEDS ORDERED: ZOLPIDEM TARTRATE 5 MG TABLET PO PRN (08:41)
[2020-01-06] MEDS ORDERED: RINGERS SOLUTION,LACTATED 1,000 ML IV PRN (08:41)
[2020-01-06] MEDS ORDERED: TRANEXAMIC ACID INJ/PF 1,000 MG/10 ML SDV IV ONE (08:41)
--- NOTE | 2020-01-06 09:43 | RADIOLOGY REPORT (SQ) ---
EXAM DESCRIPTION: KNEE LEFT 2 VIEWS IMAGES COMPLETED DATE/TIME: 01/06/2020 9:28 am REASON FOR STUDY: Post OP -Long Cassette in PACU M17.12 UNILATERAL PRIMARY OSTEOARTHRITIS, LEFT KNE E COMPARISON: None. NUMBER OF VIEWS: Two views. TECHNIQUE: AP and lateral radiographic images acquired of the left knee. LIMITATIONS: None. FINDINGS: MINERALIZATION: Normal. BONES: Status post in TKA. The hardware is in anatomic alignment. There is no periprosthetic fractu re. JOINT: Subcutaneous and intra-articular emphysema. SOFT TISSUES: As above. OTHER: Chronic fracture deformity of the proximal fibula and surgical cutaneous nadine. IMPRESSION: Uncomplicated TKA hardware with expected immediate postoperative findings. TECHNICAL DOCUMENTATION: JOB ID: [id number] 2010 [employer]- All Rights Reserved Reading location - IP/workstation name: [email or web address]
[2020-01-06] MEDS ORDERED: APIXABAN 5 MG PO SCH (10:00)
[2020-01-06] MEDS ORDERED: (PENDING PHARMACY ID) (Multivitamin/Iron/Folic Acid [Centrum Adults Tablet] 1 EACH) PO SCH (10:00)
[2020-01-06] MEDS ORDERED: (PENDING PHARMACY ID) (Methadone Hcl [Methadone Hcl] 5 MG) PO SCH (10:00)
[2020-01-06] MEDS ORDERED: CYCLOBENZAPRINE HCL 10 MG TABLET PO PRN (11:30)
[2020-01-06] MEDS ORDERED: CYCLOBENZAPRINE HCL 10 MG TABLET PO SCH (14:00)
[2020-01-06] MEDS ORDERED: GABAPENTIN 300 MG CAPSULE PO SCH ×2 (14:00→22:00)
[2020-01-06] MEDS: METHADONE HCL 10 MG TABLET PO SCH ×2 (14:11→21:41)
[2020-01-06] MEDS: OXYCODONE HCL IR 5 MG TABLET PO PRN ×2 (14:11→21:40)
[2020-01-06] MEDS: IBUPROFEN 800 MG in NORMAL SALINE 250 ML IV SCH ×2 (14:12→21:39)
[2020-01-06] MEDS ORDERED: PHENYLEPHRINE HCL INJ/PF 10 MG/1 ML SDV ONE (14:13)
[2020-01-06] MEDS: SENNOSIDES/DOCUSATE 8.6-50 MG 1 EACH TABLET PO SCH (18:05)
[2020-01-06] MEDS ORDERED: VANCOMYCIN HCL 1,000 MG in DEXTROSE 5%-WATER 250 ML IV ONE (20:40)
[2020-01-06] MEDS: APIXABAN 5 MG TABLET PO SCH (21:42)
[2020-01-06] MEDS: ATENOLOL 50 MG TABLET PO SCH (21:42)
[2020-01-06] MEDS ORDERED: ATORVASTATIN CALCIUM 40 MG TABLET PO SCH (22:00)
[2020-01-06] MEDS ORDERED: AMLODIPINE BESYLATE 10 MG TABLET PO SCH (22:00)
[2020-01-07 05:14] LABS: HEMATOCRIT 38.1 % (37.9-51.0); HEMOGLOBIN 13.2 g/dL (13.5-17.0); MEAN CORPUSCULAR HEMOGLOBIN 31.3 pg (27.0-33.4); MEAN CORPUSCULAR HGB CONC 34.6 g/dL (32.0-36.0); MEAN CORPUSCULAR VOLUME 91 fl (80-97); PLATELET COUNT 161 10^3/uL (150-450); RED CELL DISTRIBUTION WIDTH 13.6 % (11.5-14.0); WHITE BLOOD COUNT 10.3 10^3/uL (4.0-10.5)
[2020-01-07 05:32] LABS: ANION GAP 7 (5-19); BLOOD UREA NITROGEN 11 mg/dL (7-20); CALCIUM 8.6 mg/dL (8.4-10.2); CARBON DIOXIDE 28 mmol/L (22-30); CHLORIDE 101 mmol/L (98-107); GLUCOSE 154 mg/dL (75-110); POTASSIUM 3.9 mmol/L (3.6-5.0)
[2020-01-07] MEDS: IBUPROFEN 800 MG in NORMAL SALINE 250 ML IV SCH (05:54)
[2020-01-07] MEDS: METHADONE HCL 10 MG TABLET PO SCH (05:54)
[2020-01-07] MEDS ORDERED: PANTOPRAZOLE SODIUM 20 MG TABLET.DR PO SCH (06:00)
--- NOTE | 2020-01-07 06:59 | PDOC DISCHARGE SUMMARY ---
Impression - Admit/DC Date/PCP Admission Date/Primary Care Provider: 01/06/20 05:31 KAMRAN TAPIA MD Discharge Date: 01/07/20 - Discharge Diagnosis (1) Arthritis of left knee Is this a current diagnosis for this admission?: Yes - Additional Information Resuscitation Status: Full Code Discharge Diet: Regular Discharge Activity: Balance Activity w/Rest, No Driving, No tub bath Referrals: JUSTINE CONDE MD [ACTIVE STAFF] - 01/21/20 9:45 am Home Medications: Amlodipine Besylate 10 mg PO QHS 09/18/17 Atenolol [Tenormin 50 mg Tablet] 50 mg PO BID 09/18/17 Atorvastatin Calcium 40 mg PO QHS 09/18/17 Celecoxib [Celebrex 200 mg Capsule] 200 mg PO QAM 09/18/17 Cyclobenzaprine HCl 10 mg PO Q8HP PRN 09/18/17 Digoxin [Digox] 250 mcg PO Q2DAYS 09/18/17 Docusate Calcium [Stool Softener] 200 mg PO BIDP PRN 09/18/17 Finasteride [Proscar 5 mg Tablet] 5 mg PO DAILY 09/18/17 Furosemide [Lasix 20 mg Tablet] 20 mg PO QAM 09/18/17 Gabapentin 300 mg PO QAM 09/18/17 Methadone HCl 5 mg PO Q8 09/18/17 Multivitamin/Iron/Folic Acid [Centrum Adults Tablet] 1 tab PO DAILY 09/18/17 Omeprazole 20 mg PO QAM 09/18/17 Tamsulosin HCl [Flomax] 0.4 mg PO QPM 09/18/17 Fluticasone Propionate [Flonase Nasal Gordon 50 Mcg/Gordon 16 gm] 1 spray NASL DAILYP PRN 02/22/19 Loratadine [Allergy] 10 mg PO DAILY 02/22/19 Apixaban [Eliquis 5 mg Tablet] 5 mg PO BID 01/06/20 Gabapentin [Neurontin 300 mg Capsule] 600 mg PO QHS 01/06/20 History of Present Illiness History of Present Illness: GRACE GARCIA is a 69 year old male 69-year-old white male with progressive left knee pain and functional disability second osteoarthritis. Patient admitted for elective left knee arthroplasty. Hospital Course Hospital Course: Patient is admitted through the operating room where undergoes noncontrast unco mplicated left knee arthroplasty. Is returned to the floor in satisfactory patient. Makes excellent progress with physical therapy ambulating multiple times over 100 feet. Patient experiences pain overnight. Compressive dressing is removed on the first postoperative morning. Underlying OpSite dressing is clean dry and intact. Physical Exam Vital Signs: Temp Pulse Resp BP Pulse Ox 36.7 C 96 20 136/70 H 93 01/07/20 04:00 01/07/20 04:00 01/07/20 04:00 01/07/20 04:00 01/06/20 15:47 Intake & Output 01/05/20 01/06/20 01/07/20 06:59 06:59 06:59 Intake Total 0 4226 Output Total 2180 Balance 0 2046 Weight 114.8 kg General appearance: PRESENT: no acute distress, mild distress Head exam: PRESENT: normocephalic Respiratory exam: PRESENT: unlabored Cardiovascular exam: PRESENT: RRR Vascular exam: PRESENT: normal capillary refill GI/Abdominal exam: PRESENT: soft Rectal exam: PRESENT: deferred Musculoskeletal exam: PRESENT: other - Left knee dressing clean dry and intact. Minimal pedal edema. Distal neurovascular examination is intact. Results Laboratory Results: WBC 10.3 10^3/uL (4.0-10.5) 01/07/20 04:53 RBC 4.20 10^6/uL (4.35-5.55) L 01/07/20 04:53 Hgb 13.2 g/dL (13.5-17.0) L 01/07/20 04:53 Hct 38.1 % (37.9-51.0) 01/07/20 04:53 MCV 91 fl (80-97) 01/07/20 04:53 MCH 31.3 pg (27.0-33.4) 01/07/20 04:53 MCHC 34.6 g/dL (32.0-36.0) 01/07/20 04:53 RDW 13.6 % (11.5-14.0) 01/07/20 04:53 Plt Count 161 10^3/uL (150-450) 01/07/20 04:53 PT 14.0 SEC (11.4-15.4) 01/06/20 06:17 INR 1.08 01/06/20 06:17 APTT 29.6 SEC (23.5-35.8) 01/06/20 06:17 Sodium 135.9 mmol/L (137-145) L 01/07/20 04:53 Potassium 3.9 mmol/L (3.6-5.0) 01/07/20 04:53 Chloride 101 mmol/L (98-107) 01/07/20 04:53 Carbon Dioxide 28 mmol/L (22-30) 01/07/20 04:53 Anion Gap 7 (5-19) 01/07/20 04:53 BUN 11 mg/dL (7-20) 01/07/20 04:53 Creatinine 0.69 mg/dL (0.52-1.25) 01/07/20 04:53 Est GFR ( Amer) > 60 (>60) 01/07/20 04:53 Est GFR (MDRD) Non-Af > 60 (>60) 01/07/20 04:53 Glucose 154 mg/dL (75-110) H 01/07/20 04:53 Calcium 8.6 mg/dL (8.4-10.2) 01/07/20 04:53 COVID-19 Source NASOPHARYNGEAL 01/01/20 08:48 COVID-19 (LENA) NOT DETECTED 01/01/20 08:48 Blood Type O POSITIVE 01/06/20 06:17 Antibody Screen NEGATIVE 01/06/20 06:17 Impressions: Knee X-Ray 01/06/20 08:42 IMPRESSION: Uncomplicated TKA hardware with expected immediate postoperative findings. Plan Plan of Treatment: Patient to be discharged home in a weightbearing as tolerated basis with home health services and DME. Follow-up with Dr. Conde and [facility] for surgery in 2 weeks for staple removal. Time Spent: Less than 30 Minutes Stroke Is this a Stroke Patient?: No Stroke Pt being discharged on Anti-thrombolytic therapy?: Yes Acute Heart Failure - Is this a Heart Failure Patient?: No
[2020-01-07] MEDS ORDERED: GABAPENTIN 300 MG CAPSULE PO SCH (08:00)
[2020-01-07] MEDS: OXYCODONE HCL IR 5 MG TABLET PO PRN (09:54)
[2020-01-07] MEDS: APIXABAN 5 MG TABLET PO SCH (09:55)
[2020-01-07] MEDS: ATENOLOL 50 MG TABLET PO SCH (09:55)
[2020-01-07] MEDS: SENNOSIDES/DOCUSATE 8.6-50 MG 1 EACH TABLET PO SCH (09:55)
[2020-01-07] MEDS ORDERED: PRENATAL VITAMIN W DHA CAPSULE PO SCH (10:00)
[2020-01-07] MEDS ORDERED: LORATADINE 10 MG TABLET PO SCH (10:00)
[2020-01-07] MEDS ORDERED: DIGOXIN 0.25 MG TABLET PO SCH (10:00)
[2020-01-07] MEDS ORDERED: HYDROXYZINE HCL 10 MG TABLET PO SCH (10:00)
[2020-01-07] MEDS ORDERED: TAMSULOSIN HCL 0.4 MG CAP.SR.24H PO SCH (10:00)
[2020-01-07] MEDS ORDERED: FUROSEMIDE 20 MG TABLET PO SCH (10:00)
[2020-01-07] MEDS ORDERED: FINASTERIDE 5 MG TABLET PO SCH (10:00)
[2020-01-07 11:36] VITALS: BP 136/70
== END 2020-01-07 11:58 | disposition home health service (06) | DRG 470 ==
LOC: INOR 05:31 → 4W 10:29
PROVIDERS: ADMIT Orthopaedic Surgery; ATTEND Orthopaedic Surgery
PROC: 0SRD0J9 Replacement of Left Knee Joint with Synthetic Substitute, Cemented, Open Approach (ICD-10-PCS; principal; 2020-01-06 07:30)
DX: M17.12 Unilateral primary osteoarthritis, left knee (principal); I48.91 Unspecified atrial fibrillation; E78.5 Hyperlipidemia, unspecified; I10 Essential (primary) hypertension; K21.9 Gastro-esophageal reflux disease without esophagitis; F17.210 Nicotine dependence, cigarettes, uncomplicated; Z79.2 Long term (current) use of antibiotics; Z79.891 Long term (current) use of opiate analgesic; Z79.51 Long term (current) use of inhaled steroids; Z79.899 Other long term (current) drug therapy; Z03.818 Encounter for observation for suspected exposure to other biological agents ruled out
CPT/HCPCS: 01402; 36415; 80048; 84132; 85027; 85610; 85730; 86850; 86900; 86901; 87635; 88305; 88311; 94799; C1713; C1776; J0690; J1741; J2250; J2370; J2405; J2704; J2795; J3010; J3370; J3490; J7050; J7060

== ENCOUNTER → 2020-03-23 | Outpatient (CLI) | payer MEDICARE, BC ==
--- NOTE | 2020-03-23 14:02 | RADIOLOGY REPORT (SQ) ---
EXAM DESCRIPTION: VENOUS UNILATERAL LOWER IMAGES COMPLETED DATE/TIME: 03/23/2020 1:49 pm REASON FOR STUDY: M79.89 LLE SWELLING M79.89 OTHER SPECIFIED SOFT TISSUE DISORDERS COMPARISON: None. TECHNIQUE: Dynamic and static sears scale and color images acquired of the left leg venous system. Se lected spectral images acquired with additional compression and augmentation maneuvers. The contralat eral common femoral vein and saphenofemoral junction were also imaged. Images stored on PACS. LIMITATIONS: None. FINDINGS: COMMON FEMORAL: Normal phasicity, compression and augmentation. No visualized echogenic ma terial on sears scale. No defects on color images. FEMORAL: Normal compression and augmentation. No visualized echogenic material on sears scale. No defe cts on color images. POPLITEAL: Normal compression, augmentation. No visualized echogenic material on sears scale. No defec ts on color images. CALF VESSELS: Normal compression, augmentation. No visualized echogenic material on sears scale. No de fects on color images. GSV and SSV: Normal compression, augmentation. No visualized echogenic material on sears scale. No def ects on color images. ANY DEEP VENOUS INSUFFICIENCY: Not evaluated. ANY EVIDENCE OF POPLITEAL CYST: No. OTHER: No other significant finding. CONTRALATERAL COMMON FEMORAL VEIN AND SAPHENOFEMORAL JUNCTION: Normal phasicity, compression and augmentation. No visualized echogenic material on sears scale. No de fects on color images. IMPRESSION: NO EVIDENCE OF DVT OR SVT IN THE LEFT LEG. TECHNICAL DOCUMENTATION: JOB ID: [id number] [employer]- All Rights Reserved Reading location - IP/workstation name: [email or web address]
== END ==
LOC: SP 12:53
PROVIDERS: ATTEND Physician Assistant
DX: M79.89 Other specified soft tissue disorders (principal)
CPT/HCPCS: 93971